=== PATIENT | female | born 1970 | race Caucasian/White ===

== ENCOUNTER → 2020-03-26 14:54 | Outpatient (CLI) | payer BC, SELFPAY ==
--- NOTE | ~2020-03-26 | MM_ITS ---
EXAMINATION: MM screening kimo BI w mir HISTORY: Screening TECHNIQUE: Craniocaudal and mediolateral oblique 3-D tomosynthesis images were obtained and synthetic 2-D images were generated. CAD analysis was submitted and interpreted. COMPARISON: Comparison to multiple prior studies sequentially, with oldest reviewed study dated 04/04. BREAST PARENCHYMAL COMPOSITION: The breasts are heterogenously dense, which may obscure small masses FINDINGS: There is no evidence of suspicious mass, calcification, or architectural distortion to sugg est malignancy in either breast. There has been no suspicious interval change. IMPRESSION: 1. No mammographic evidence of malignancy. 2. Recommend routine screening mammography in one year. BI-RADS Category 1: Negative Reviewed, dictated and finalized at location A.
== END ==
PROVIDERS: Visit Provider Obstetrics & Gynecology
DX: Z12.31 Encounter for screening mammogram for malignant neoplasm of breast (principal)
CPT/HCPCS: 77063; 77067

== ENCOUNTER → 2021-07-04 16:14 | Outpatient (CLI) | payer BC, SELFPAY ==
--- NOTE | ~2021-07-04 | MM_ITS ---
EXAMINATION: MM screening kimo BI w mir HISTORY: Screening mammogram TECHNIQUE: Craniocaudal and mediolateral oblique 3-D tomosynthesis images were obtained and synthetic 2-D images were generated. CAD analysis was submitted and interpreted. COMPARISON: 03/26/2020, 03/14/2019 bilateral screening mammogram examinations BREAST PARENCHYMAL COMPOSITION: The breasts are heterogeneously dense, which may obscure small masses . FINDINGS: There is no evidence of suspicious mass, calcification, or architectural distortion to sugg est malignancy in either breast. There has been no suspicious interval change. IMPRESSION: 1. No mammographic evidence of malignancy. 2. Recommend routine screening mammography in one year. BI-RADS Category 1: Negative Reviewed, dictated and finalized at location A. LING PULLER
== END ==
PROVIDERS: PCP Family Medicine; Visit Provider Family Medicine
DX: Z12.31 Encounter for screening mammogram for malignant neoplasm of breast (principal)
CPT/HCPCS: 77063; 77067

== ENCOUNTER → 2021-08-21 13:32 | Outpatient (CLI) | payer BC, SELFPAY ==
--- NOTE | ~2021-08-21 | XR_ITS ---
EXAMINATION: XR clavicle RT DATE: 08/21/2021 13:53 INDICATION: Pain in unspecified shoulder. TECHNIQUE: 2 views of right clavicle were obtained. COMPARISON: None. FINDINGS: Bone alignment is normal. No fracture. Coracoclavicular interval is normal. There is modera te acromioclavicular joint osteoarthritis. There is mild osteoarthritis of glenohumeral joint. A calc ified right lung nodule is consistent with old granulomatous disease. IMPRESSION: 1. Polyarticular osteoarthritis. Reviewed, dictated and finalized at location D. LE CONTROL CHENILLER
== END ==
PROVIDERS: PCP Family Medicine; Visit Provider Family Medicine
DX: M19.011 Primary osteoarthritis, right shoulder (principal)
CPT/HCPCS: 73000

== ENCOUNTER → 2022-08-27 16:19 | Outpatient (CLI) | payer BC, SELFPAY ==
--- NOTE | ~2022-08-27 | MM_ITS ---
EXAMINATION: MM screening kimo BI w mir HISTORY: Screening mammogram TECHNIQUE: Craniocaudal and mediolateral oblique 3-D tomosynthesis images were obtained and synthetic 2-D images were generated. CAD analysis was submitted and interpreted. COMPARISON: 06/24/2021, 03/26/2020, 03/14/2019 BREAST PARENCHYMAL COMPOSITION: The breasts are heterogeneously dense, which may obscure small masses . FINDINGS: RIGHT BREAST: No suspicious mass, calcification, or architectural distortion are identified to sugges t malignancy. There has been no suspicious interval change. LEFT BREAST: An focal asymmetry is present in the posterior third of the upper inner left breast. IMPRESSION: 1. Left breast focal asymmetry. 2. Additional mammographic views and possible breast ultrasound are recommended. BI-RADS Category 0: Incomplete: Needs additional imaging evaluation. Reviewed, dictated and finalized at location A. EAR OPERATOR IMPRESSION: 1. Left breast focal asymmetry. 2. Additional mammographic views and possible breast ultrasound are recommended . BI-RADS Category 0: Incomplete: Needs additional imaging evaluation.
== END ==
PROVIDERS: PCP Family Medicine; Visit Provider Family Medicine
DX: Z12.31 Encounter for screening mammogram for malignant neoplasm of breast (principal); R92.8 Other abnormal and inconclusive findings on diagnostic imaging of breast
CPT/HCPCS: 77063; 77067

== ENCOUNTER → 2022-09-15 14:24 | Outpatient (CLI) | payer BC, SELFPAY ==
--- NOTE | ~2022-09-15 | MM_ITS ---
EXAMINATION: MM diagnostic kimo LT w mir HISTORY: Focal left breast upper inner quadrant mammographic asymmetry on 08/27/2022 screening mammogra m TECHNIQUE: Additional 3-D tomosynthesis images of the left breast were performed and synthetic 2-D im ages were generated. CAD analysis was submitted and interpreted. COMPARISON: 08/27/2022screening mammogram FINDINGS: No suspicious mass or architectural distortion is detected at the area in question in the p osterior upper inner left breast IMPRESSION: 1. No mammographic evidence of malignancy 2. Routine mammographic screening is recommended BI-RADS Category 1: Negative Reviewed, dictated and finalized at location A. WORKER
== END ==
PROVIDERS: PCP Family Medicine; Visit Provider Physician Assistant
DX: R92.8 Other abnormal and inconclusive findings on diagnostic imaging of breast (principal)
CPT/HCPCS: 77061; 77065; G0279

== ENCOUNTER → 2022-11-10 09:47 | Outpatient (CLI) | payer BC, SELFPAY ==
--- NOTE | ~2022-11-10 | XR_ITS ---
Clinical Indication: Cough PA and lateral views of the chest: Comparison: 02/22/2019 Findings: Stable calcified right midlung granuloma. The lungs are otherwise clear, without evidence o f focal consolidation or pleural effusion. Cardiomediastinal silhouette is within normal limits. Bon es and soft tissues are unremarkable. Impression: No acute abnormality. Reviewed, dictated and finalized at location . Impression: No acute abnormality.
== END ==
PROVIDERS: PCP Physician Assistant; Visit Provider Physician Assistant
DX: R05.9 Cough, unspecified (principal)
CPT/HCPCS: 71046

== ENCOUNTER 2023-06-19 12:10 | Emergency (ER) | payer BC, SELFPAY ==
--- NOTE | ~2023-06-19 | XR_ITS ---
XR foot RT min 3V 06/19/2023 12:42 Indication: Right foot pain Procedure: 4 views right foot Comparison: Comparison to multiple prior studies sequentially, with oldest reviewed study dated 01/31. Findings: There is osteoarthritis of the first metatarsal phalangeal joint breast 03/28/2014. No acut e fracture or traumatic malalignment. Lisfranc joint intact. No erosive changes. No foreign bodies. Impression: 1: Progression of mild-moderate osteoarthritis of the first metatarsophalangeal joint. Reviewed, dictated and finalized at location B. Impression: 1: Progression of mild-moderate osteoarthritis of the first metatarsophalangeal joint.
--- NOTE | 2023-06-19 12:22 | ED.LOWEXIN ---
HPI - Extremity Injury (Lower) General Chief Complaint: Extremity Injury, Lower Stated Complaint: right big toe pain Time Seen by Provider: 06/19/23 12:22 Source: patient Mode of arrival: ambulatory Limitations: no limitations History of Present Illness HPI Narrative: 52-year-old female presents with complaint of pain to right 1st metatarsal joint. Reports today at work she was running up the bleachers and twisted right foot. Reports pain when bearing weight. Reports history of multiple problems with her feet . History of arthritis, bunions. He ambulatory with limp. Range of motion and distal neurovascularly intact. All systems reviewed and negative except as noted above. Related Data Allergies Allergy/AdvReac Type Severity Reaction Status Date / Time No Known Allergies Allergy Verified 06/19/23 12:23 Review of Systems Review of Systems: CONSTITUTIONAL: Denies fever, chills, or sweats. EYES: Denies visual changes, redness, or discharge. ENT: Denies rhinorrhea, congestion, sore throat, or otalgia. CARDIOVASCULAR: Denies chest pain, palpitations, or edema. RESPIRATORY: Denies cough or dyspnea. GASTROINTESTINAL: Denies abdominal pain, nausea, vomiting, or diarrhea. GENITOURINARY: Denies dysuria or hematuria. SKIN: Denies rash or itching. MUSCULOSKELETAL: Reports pain and swelling to right foot. NEUROLOGIC: Denies headache, numbness, or weakness. PSYCHIATRIC: Denies anxiety or depression. All other systems reviewed are negative, except as documented in HPI. [facility] Past Medical History Medical History Abnormal mammogram Acquired hallux valgus of left foot Enlargement of right sternoclavicular joint Hallux rigidus of left foot Hx gestational diabetes Hx of fracture of clavicle Infection, fungal, left foot Seasonal allergies Urinary frequency Surgical History Surgical History History of toe surgery Social History Social History (Updated 11/10/22 @ 09:27 by Tennille Humphries MA) Smoking status: Never smoker Alcohol intake: current Lack of Transportation: No Lack of Food: Never True Current Housing: I Have Housing Concerned About Future Housing: No Difficulty Paying Gas/Electric Bills: No Difficulty Paying for Meds: No Currently Unemployed: No Education: Master's Degree or Higher Difficulty w/ Childcare or Family Care: No Comments At time of signature, agree with nursing past medical, surgical, social and family history. There is no relevant family history pertinent to the presenting complaint. Exam Narrative: GENERAL: This is a well-nourished, well-developed patient, in no apparent distress. HEAD: normocephalic, atraumatic. EYES: PERRL. Sclera clear/white. Vision is grossly intact. EARS: External ears normal NOSE: External nose normal NECK: Neck supple, non-tender without lymphadenopathy, masses or thyromegaly. CARDIOVASCULAR: Regular rate and rhythm without murmurs, gallops, or rubs. RESPIRATORY: Clear to auscultation. Breath sounds equal bilaterally. No wheezes, rales, or rhonchi. SKIN: warm, Dry, intact with no suspicious lesions or rash, good texture and turgor. NEURO: awake, alert, and oriented to person, place and time. There were no obvious focal neurologic abnormalities. EXTREMITIES: swelling and tenderness on palpation of R first MTP joint. unable to assess warmth due to ice recently applied. Course Course Level of Care: Express Care Visit Vital Signs Vital signs: Vital Signs Temperature 37.2 C 06/19/23 12:23 Pulse Rate 98 06/19/23 12:23 Respiratory Rate 16 06/19/23 12:23 Blood Pressure 146/86 H 06/19/23 12:23 Pulse Oximetry 100 06/19/23 12:23 Oxygen Delivery Room Air 06/19/23 12:23 Temperature 37.2 C 06/19/23 12:23 Pulse Rate 98 06/19/23 12:23 Respiratory Rate 16 06/19/23 12:23 Blood Pressure
[2023-06-19 12:23] VITALS: BP 146/86; PULSE 98; RESP 16; TEMP 37.2; O2SAT 100
[2023-06-19] MEDS: KETOROLAC (*BKC) 60 MG/2 ML VIAL IM (13:18)
== END 2023-06-19 13:23 | disposition home or self-care (01) ==
PROVIDERS: Emergency Provider Nurse Practitioner Family; PCP Family Medicine
DX: S93.601A Unspecified sprain of right foot, initial encounter (principal); X50.9XXA Other and unspecified overexertion or strenuous movements or postures, initial encounter; Y99.0 Civilian activity done for income or pay; M19.071 Primary osteoarthritis, right ankle and foot
CPT/HCPCS: 73630; 96372; 99213; G0463; J1885

== ENCOUNTER 2024-03-29 10:15 | Outpatient (CLI) | payer OTHER, SELFPAY ==
--- NOTE | 2024-03-29 10:19 | EST_ITS ---
Patient Info Name: Sherry Bullock Age: 53 years : 1970 Gender: Female Ht: 64 in Wt: 136 lbs BSA: 1.68 m2 HR: 73 bpm BP: 113 / 76 mmHg Heart Rhythm: Sinus Rhythm Exam Date: 03/29/2024 10:46 AM Exam Location: Echo Lab Patient Status: Outpatient Admit Date: 03/29/2024 Staff Ordering Physician: Juan Pan APRN Attending Provider: Juan Pan APRN Exercise Technologist: Sonia Little CT Exercise Physician: lEijah Costa DO Exam Type: CA stress test treadmill Study Info Indications R06.09 - Other forms of dyspnea A treadmill exercise stress test was performed. Summary 1. 1. Negative Jay exercise stress test for ischemic ST changes by ECG criteria. 2. 2. Reduced functional capacity, achieving 7 METs of workload. 3. 3. Appropriate HR response to exercise. 4. 4. Appropriate HR recovery at 1 minute post exercise. 5. 5. No imaging with stress testing. 6. 6. Patient informed of the above results. Protocol: Jay Stress ECG Details Stage: REST Duration (min): 1 min : 8 sec Speed (mph): 0.0 Grade (%): 0 HR (bpm): 68 SBP (mmHg): 113 DBP (mmHg): 76 METS: --- Stage: REST Duration (min): 11 min : 21 sec Speed (mph): 0.0 Grade (%): 0 HR (bpm): 80 SBP (mmHg): 113 DBP (mmHg): 76 METS: --- Stage: STAGE 1 Duration (min): 1 min : 0 sec Speed (mph): 1.7 Grade (%): 10 HR (bpm): 116 SBP (mmHg): 113 DBP (mmHg): 76 METS: --- Stage: STAGE 1 Duration (min): 2 min : 0 sec Speed (mph): 1.7 Grade (%): 10 HR (bpm): 132 SBP (mmHg): 113 DBP (mmHg): 76 METS: --- Stage: STAGE 1 Duration (min): 3 min : 0 sec Speed (mph): 1.7 Grade (%): 10 HR (bpm): 132 SBP (mmHg): 143 DBP (mmHg): 77 METS: --- Stage: STAGE 2 Duration (min): 1 min : 0 sec Speed (mph): 2.5 Grade (%): 12 HR (bpm): 142 SBP (mmHg): 143 DBP (mmHg): 77 METS: --- Stage: STAGE 2 Duration (min): 2 min : 0 sec Speed (mph): 2.5 Grade (%): 12 HR (bpm): 144 SBP (mmHg): 148 DBP (mmHg): 76 METS: --- Stage: STAGE 2 Duration (min): 3 min : 0 sec Speed (mph): 2.5 Grade (%): 12 HR (bpm): 148 SBP (mmHg): 148 DBP (mmHg): 76 METS: --- Stage: RECOVERY Duration (min): 0 min : 59 sec Speed (mph): 0.0 Grade (%): 0 HR (bpm): 122 SBP (mmHg): 149 DBP (mmHg): 75 METS: --- Stage: RECOVERY Duration (min): 1 min : 45 sec Speed (mph): 0.0 Grade (%): 0 HR (bpm): 98 SBP (mmHg): 149 DBP (mmHg): 75 METS: --- Rest HR: 80 bpm Peak HR: 151 bpm Rest Sys BP: 113 mmHg Peak Sys BP: 149 mmHg Max Pred HR: 165 bpm % Max Pred HR: 92 % Target HR: 140 bpm Max RPP: 22,499 bpm*mmHg Concepcion Score: -1 Termination Reason: Reached target heart rate or workload Cardiac Symptoms: Shortness of breath Max ST Seg Deviation: -1.40 mm Total Time: 6 min : 0 sec Rest Billy BP: 76 mmHg Peak Billy BP: 75 mmHg Angina Score: None Total METS: 7.1 Resting ECG Sinus rhythm. Stress ECG No ST changes. Arrhythmias None. Report Signatures
== END 2024-03-29 10:16 | disposition home or self-care (01) ==
LOC: ANHCARD 10:16
PROVIDERS: PCP Family Medicine; Visit Provider Student in an Organized Health Care Education/Training Program
DX: R06.09 Other forms of dyspnea (principal); R61 Generalized hyperhidrosis; M79.601 Pain in right arm
CPT/HCPCS: 93017

== ENCOUNTER 2024-05-02 14:46 | Outpatient (CLI) | payer BC, SELFPAY ==
--- NOTE | ~2024-05-02 | MM_ITS ---
EXAMINATION: MM screening kimo BI w mir HISTORY: Screening mammogram TECHNIQUE: Craniocaudal and mediolateral oblique 3-D tomosynthesis images were obtained and synthetic 2-D images were generated. CAD analysis was submitted and interpreted. COMPARISON: 08/27/2022, 07/04/2021, 03/26/2020 BREAST PARENCHYMAL COMPOSITION:Dense: The breasts are heterogeneously dense, which may obscure small masses. FINDINGS: No suspicious mass, calcification, or architectural distortion are identified in either chiki ast to suggest malignancy. There has been no suspicious interval change. IMPRESSION: No mammographic evidence of malignancy. Recommend routine screening mammography in one year. BI-RADS Category 1: Negative Reviewed, dictated and finalized at location .
== END 2024-05-02 14:47 | disposition home or self-care (01) ==
PROVIDERS: PCP Family Medicine; Visit Provider Student in an Organized Health Care Education/Training Program
DX: Z12.31 Encounter for screening mammogram for malignant neoplasm of breast (principal)
CPT/HCPCS: 77063; 77067

== ENCOUNTER 2025-04-28 15:33 | Outpatient (CLI) | payer BC, SELFPAY ==
--- NOTE | ~2025-04-28 | XR_ITS ---
EXAMINATION: XR chest 2V 04/28/2025 15:53 INDICATION: Chronic cough for 6 months PROCEDURE: 2 view chest COMPARISON: 11/10/2022 FINDINGS: The lungs are clear. Calcified granuloma right mid thorax. The cardiomediastinal silhouette is within normal limits. There are no pleural effusions. There is no pneumothorax suspected. IMPRESSION: 1: NO ACUTE CARDIOPULMONARY DISEASE. Reviewed, dictated and finalized at location O.
== END 2025-04-28 15:34 | disposition home or self-care (01) ==
LOC: GOSHIMG 15:35
PROVIDERS: PCP Family Medicine; Visit Provider Student in an Organized Health Care Education/Training Program
DX: R05.3 Chronic cough (principal)
CPT/HCPCS: 71046

== ENCOUNTER 2025-06-21 08:16 | Outpatient (CLI) | payer BC, SELFPAY ==
--- NOTE | ~2025-06-21 | CT_ITS ---
EXAMINATION: CT sinus wo con COMPARISON: None HISTORY: J32.9 - Chronic sinusitis, unspecified TECHNIQUE: Axial images were obtained without IV contrast. Sagittal, coronal reconstruction images were obtained from the axial views. CT scan performed using dose optimization techniques including the following automated exposure control; adjustment of mA and/or kV; use of iterative reconstruction technique. Automatic exposure control was used to reduce radiation dose. Permanent radiation dose record is archived to PACS. FINDINGS: Frontal sinus is unremarkable. Minimal mucosal thickening in the ethmoidal sinuses. Maxillary sinuses are unremarkable. The ostiomeatal complexes are patent. Nasal septum deviated slightly to the left. No significant thickening of the turbinates with narrowing of the nasal cavities. Sphenoid sinuses are unremarkable. No osseous destruction or wall thickening is identified. IMPRESSION: Minimal sinusitis Reviewed, dictated and finalized at location P. IMPRESSION: Minimal sinusitis
== END 2025-06-21 08:17 | disposition home or self-care (01) ==
PROVIDERS: PCP Family Medicine; Visit Provider Otolaryngology
DX: J32.9 Chronic sinusitis, unspecified (principal)
CPT/HCPCS: 70486

== ENCOUNTER 2025-07-10 00:07 | Day surgery (SDC) | payer BC, SELFPAY ==
[2025-06-28 08:51] VITALS: BMI 22.3
[2025-07-10 08:52] VITALS: BP 102/73; PULSE 89; RESP 16; TEMP 36.3; O2SAT 100
[2025-07-10] MEDS: LACTATED RINGERS 1,000 ML 150 ML IV CONT (09:08)
--- NOTE | 2025-07-10 09:35 | PM.IMHP ---
H&P: HPI History of Present Illness Date/Time: 07/10/25 09:35 Chief Complaint: family history of colon cancer Narrative: this is a 54-year-old woman who presents for colonoscopy. Her last colonoscopy was 6 years ago. She has a family history of colon cancer in her father. She denies any hematochezia or melena. Review of Systems Review of Systems: All systems reviewed & are unremarkable except as noted in HPI and below Constitutional: Constitutional: Denies chills, Denies fever(s), Denies headache(s) and Denies weight loss Eyes: Eyes: Denies change in vision ENT: Denies dizziness, Denies headache(s), Denies neck mass and Denies throat swelling Cardiovascular: Cardiovascular: Denies chest pain, Denies lightheadedness and Denies dyspnea Respiratory: Respiratory: Denies cough, Denies dyspnea and Denies wheezing Gastrointestinal: Gastrointestinal: Denies abdominal pain, Denies change in bowel habits, Denies nausea and Denies vomiting Genitourinary: Genitourinary: Denies hematuria and Denies dysuria Musculoskeletal: Musculoskeletal: Reports as per HPI Integumentary/Breasts: Skin/Breast: Reports as per HPI Neurologic: Denies dizziness and Denies headache(s) Allergic/Immunologic: Allergic/Immunologic: Denies throat swelling and Denies wheezing [facility] Past Medical History Medical History (Updated 07/10/25 @ 09:36 by Guillermo Miles DO) Chronic sinusitis Hallux rigidus of right foot Abnormal mammogram Hx of fracture of clavicle Enlargement of right sternoclavicular joint Urinary frequency Hx gestational diabetes Seasonal allergies Infection, fungal, left foot Hallux rigidus of left foot Acquired hallux valgus of left foot Surgical History Surgical History History of toe surgery Social History Social History Social History: Caffeine-coffee Smoking status: Never smoker Alcohol intake: current Alcohol use details: occasionally Substance use: never Substance use type: does not use Do You Feel Safe in your Home?: Yes Lack of Transportation: No Lack of Food: Never True Current Housing: I Have Housing Concerned About Future Housing: No Difficulty Paying Gas/Electric Bills: No Difficulty Paying for Meds: No Currently Unemployed: No Education: Master's Degree or Higher Difficulty w/ Childcare or Family Care: No Meds Home Medications and Allergies Home Medications ?Medication ?Instructions ?Recorded ?Confirmed ?Type spironolactone 100 mg tablet 100 mg PO DAILY 02/12/24 06/28/25 History metformin 500 mg tablet,extended 1,000 mg (2 x 500 mg) PO BID #360 07/22/24 07/10/25 Rx release 24 hr tabs isotretinoin 20 mg capsule 20 mg PO DAILY 03/01/25 07/10/25 History (Accutane) ipratropium bromide 21 mcg (0.03 2 spray intranasal BID #30 mL 05/18/25 07/10/25 Rx %) nasal spray gabapentin 100 mg capsule 100 mg PO .COMPLEX #90 caps 05/19/25 07/10/25 Rx Allergies Allergy/AdvReac Type Severity Reaction Status Date / Time No Known Allergies Allergy Verified 07/10/25 08:41 Vital Signs Vital Signs - 24 hr 07/10/25 08:52 Temperature 97.4 F L Pulse Rate 89 Respiratory Rate 16 Blood Pressure 102/73 Pulse Oximetry 100 Oxygen Delivery Room Air Exam Const: General: no acute distress and alert Orientation/consciousness: patient oriented x3 HENMT: Head: normocephalic and atraumatic Ears: hearing grossly normal bilaterally Face/Nose/Sinus: Normal nares present Mouth: Yes Normal oral and palatal mucosa present Eyes: Periorbital: periorbital findings normal Sclera: sclerae normal EOM: EOMs intact bilaterally Neck: Neck: normal visual inspection, no lymphadenopathy and trachea midline Chest: Chest palpation & inspection: normal inspection of the chest Resp: Effort & Inspection: normal respiratory effort Auscultation: clear to auscultation bilaterally Cardio: Jugular venous distension: no JVD Rate: regular rate Rhythm: regular rhythm Heart sounds: S1 normal heart sound present and S2 normal heart sound present Peripheral pulses: Peripheral pulses 2+ throughout GI: Inspection: normal to inspection GI Palp: Yes Soft to palpation, No Tenderness to palpation present (GI), No Guarding due to palpation present (GI) and No Rebound tenderness present Percussion: Yes normal to percussion Auscultation: normal bowel sounds : General: Yes no CVA tenderness Back/Spine/Pelvis: Back: no CVA tenderness Neuro: General: patient oriented x3, no focal motor deficits and CN's II-XI intact bilaterally Cognition (Neuro): normal cognition Speech: normal speech Motor exam (neuro): 5/5 motor strength present throughout Extrem: General: capillary refill normal and no clubbing, cyanosis or edema Assessment and Plan Assessment and plan (1) Family history of colon cancer: Code(s): Z80.0 - Family history of malignant neoplasm of digestive organs Status: Acute Assessment and Plan: I have recommended colonoscopy. I have discussed the procedure, risks, benefits, and alternatives. Questions were answered. Patient is agreeable to proceed.
--- NOTE | 2025-07-10 09:38 | WPDANESEPPF ---
Anes - Initial Pre Proc Eval Procedure: Operation Date: 07/10/25 10:00 Proposed Procedures p Screening Colonoscopy - Guillermo Miles DO Date/Time: 07/10/25 09:38 Surgeon: Guillermo Miles DO Pre Op Diagnosis: Neoplasm screening Patient Data Age: 54 Gender: F Height: 1.63 m Weight: 57.1 kg Last Vital Signs Temp 36.3 C L 07/10/25 08:52 Pulse 89 07/10/25 08:52 Resp 16 07/10/25 08:52 BP 102/73 07/10/25 08:52 Pulse Ox 100 07/10/25 08:52 O2 Del Method Room Air 07/10/25 08:52 Allergies Allergy/AdvReac Type Severity Reaction Status Date / Time No Known Allergies Allergy Verified 07/10/25 08:41 Home Medications ?Medication ?Instructions ?Recorded ?Confirmed ?Type spironolactone 100 mg tablet 100 mg PO DAILY 02/12/24 06/28/25 History metformin 500 mg tablet,extended 1,000 mg (2 x 500 mg) PO BID #360 07/22/24 07/10/25 Rx release 24 hr tabs isotretinoin 20 mg capsule 20 mg PO DAILY 03/01/25 07/10/25 History (Accutane) ipratropium bromide 21 mcg (0.03 2 spray intranasal BID #30 mL 05/18/25 07/10/25 Rx %) nasal spray gabapentin 100 mg capsule 100 mg PO .COMPLEX #90 caps 05/19/25 07/10/25 Rx Laboratory Tests 07/10/25 09:04 POC Capillary Glucose 96 mg/dl (65-105) Patient hx anesthesia problems: none Family hx anesthesia problems: none Results Review: All pre-operative results and documents have been reviewed as part of the pre-operative evaluation. [facility] Past Medical History Medical History (Updated 07/10/25 @ 09:36 by Guillermo Miles DO) Chronic sinusitis Hallux rigidus of right foot Abnormal mammogram Hx of fracture of clavicle Enlargement of right sternoclavicular joint Urinary frequency Hx gestational diabetes Seasonal allergies Infection, fungal, left foot Hallux rigidus of left foot Acquired hallux valgus of left foot Surgical History Surgical History History of toe surgery Social History Social History Social History: Caffeine-coffee Smoking status: Never smoker Alcohol intake: current Alcohol use details: occasionally Substance use: never Substance use type: does not use Do You Feel Safe in your Home?: Yes Lack of Transportation: No Lack of Food: Never True Current Housing: I Have Housing Concerned About Future Housing: No Difficulty Paying Gas/Electric Bills: No Difficulty Paying for Meds: No Currently Unemployed: No Education: Master's Degree or Higher Difficulty w/ Childcare or Family Care: No Anes - Eval Final PreProcedure Day of Procedure 07/10/25 09:38 Patient weight: normal Heart: regular rate and rhythm Lungs: clear to auscultation and normal air movement Airway: Mallampati scale class II Neurological: alert and oriented Last oral intake: >/= 8 hours ASA classification: II Emergent: no Anesthetic plan: proceed Anesthesia type and monitoring: general GIVS and standard monitoring Results Review: All pre-operative results and documents have been reviewed as part of the pre-operative evaluation. Informed Consent: The patient's anesthetic plan and its attendant risks and benefits were discussed with the patient/family/POA. Questions were solicited and answers provided to the satisfaction of the patient/family/POA.
[2025-07-10 10:02] VITALS: BP 96/65; PULSE 80; RESP 16; O2SAT 98
[2025-07-10 10:12] VITALS: BP 97/66; PULSE 65; RESP 16; O2SAT 100
[2025-07-10 10:22] VITALS: BP 104/74; PULSE 68; RESP 16; O2SAT 100
== END 2025-07-10 10:42 | disposition home or self-care (01) ==
PROVIDERS: PCP Family Medicine; Visit Provider Surgery
PROC: 0DJD8ZZ Inspection of Lower Intestinal Tract, Via Natural or Artificial Opening Endoscopic (ICD-10-PCS; CPT 45378; principal; 2025-07-10 10:00)
DX: Z12.11 Encounter for screening for malignant neoplasm of colon (principal); Z80.0 Family history of malignant neoplasm of digestive organs; Z79.84 Long term (current) use of oral hypoglycemic drugs
CPT/HCPCS: 45378; 82948; J2704; J7120

== ENCOUNTER 2025-08-09 13:09 | Outpatient (CLI) | payer BC, SELFPAY ==
--- NOTE | ~2025-08-09 | MM_ITS ---
EXAMINATION: MM screening kimo BI w mir HISTORY: Screening TECHNIQUE: Craniocaudal and mediolateral oblique 3-D tomosynthesis images were obtained and synthetic 2-D images were generated. CAD analysis was submitted and interpreted. COMPARISON: Comparison to multiple prior studies sequentially, with oldest reviewed study dated , 03/26/2020 BREAST PARENCHYMAL COMPOSITION: Dense: The breasts are heterogeneously dense, which may obscure small masses. FINDINGS: There is no evidence of suspicious mass, calcification, or architectural distortion to suggest malignancy in either breast. IMPRESSION: 1. No mammographic evidence of malignancy. 2. Recommend routine screening mammography in one year. BI-RADS Category 1: Negative Reviewed, dictated and finalized at location A. D NURSE
--- OUTSIDE RECORDS SUMMARY | 2025-08-09 15:12 | XMS_ITS | Clinical Summary ---
Author Organization [facility] Address [address] [place] [address] Phone Care Team Providers Care Cage Supervisor Name Role Phone Marilee Padron MD Primary Care Provider + Allergies No known active allergies Medications clindamycin (CLEOCIN T) 1 % external solution APPLY TOPICALLY TO FACE EVERY DAY IN THE MORNING 2 Active Accutane 20 mg capsule 2 Active nystatin-triamc inolone ointment 2 Active spironolactone (ALDACTONE) 100 mg tablet Active benzonatate (TESSALON) 100 mg capsuleIndicati ons:Cough Take 1 capsule (100 mg total) by mouth 3 (three) times a day as needed for cough 30 capsule 1 5 Active Active Problems Problem Noted Date Diagnosed Date Abnormal finding on mammography 10/21/2010 Encounters Date Type Department Care Team Description 06/21/2025 4:00 PM CDT Office Visit [facility] ([facility]) - [facility] Medicine E[facility] [address]th [place] [address] [place] [id number] Barrie Olivares MD Chronic cough (Primary Dx); Globus pharyngeus; LPRD (laryngopharyngeal reflux disease); Allergic rhinitis, unspecified seasonality, unspecified trigger 06/21/2025 3:58 PM CDT - 06/21/2025 11:59 PM CDT Hospital Encounter [facility] ([facility] [address] [place] [address] Discharge Disposition: Discharge to home or self care from Last 3 Months Surgical History Surgery Date Site/Laterality Comments TOE SURGERY 08/24/2010 - 08/23/2011 Family History Medical History Relation Name Comments Cancer Father Letty Cornejo Hearing loss Father Letty Cornejo Hearing loss Mother Kirsten Cornejo Osteoarthritis Mother Kirsten Cornejo Relation Name Status Comments Father Letty Cornejo Mother Kirsten Cornejo Alive Social History Tobacco Use Types Packs/Day Years Used Date Smoking Tobacco: Never Assessed Comments Unknown Sex and Gender Information Value Date Recorded Sex Assigned at Not on file Legal Sex Female 3:30 AM [employer] Gender Identity Not on file Sexual Orientation Not on file 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 Not on file Not on file Last Filed Vital Signs Vital Sign Reading Time Taken Comments Blood Pressure 126/73 06/21/2025 3:54 PM CDT Pulse 91 06/21/2025 3:54 PM CDT Temperature - - Respiratory Rate - - Oxygen Saturation - - Inhaled Oxygen Concentration - - Weight 59 kg (130 lb) 06/21/2025 3:54 PM CDT Height 162.6 cm (5' 4) 06/21/2025 3:54 PM CDT Body Mass Index 22.31 06/21/2025 3:54 PM CDT Plan of Treatment Health Maintenance Due Date Last Done Comments Cervical Cancer Screening 1968 Colon Cancer Screening-Colonoscopy 1968 Depression Screening 1968 Hepatitis C Screening 1968 Hepatitis B Screening 1986 Regular Well Visit/Exam 18-64 1986 Breast Cancer Screening-Mammogram 11/19/2018 11/19/2017, 10/08/2017, 09/21/2017, Additional history exists Covid-19 Vaccine ( season) 2025 08/25/2021, 11/12/2020, 10/13/2020 Influenza Vaccine (#1) 2025 , 06/23/2020, 05/24/2013 DTaP/Tdap/Td Vaccine (2 - Td or Tdap) 02/20/2027 02/20/2017 Zoster Vaccine Completed 03/08/2022, 08/23/2021 Pneumococcal vaccine <65 Aged Out No longer eligible based on patient's age to complete this topic Procedures Procedure Name Priority Date/Time Associated Diagnosis Comments NEURO CT OUTSIDE REFERENCE Routine 06/21/2025 3:58 PM CDT SCREENING MAMMOGRAM Routine 11/19/2017 3 :59 PM CDT from Last 3 Months or Most Recently Relevant to Health Maintenance Results * Neuro CT Outside Reference (06/21/2025 3:58 PM CDT) Impressions [facility] - 06/21/2025 3:58 PM CDT These images are for Reference purposes only and have not been reviewed by [facility] Radiology. There will be no report generated by a [facility] Radiologist. Narrative [facility] - 06/21/2025 3:58 PM CDT EXAMINATION: Images For Reference Purposes Only us Barrie Olivares MD IMG CT PROCEDURES Final Result RAD_PACS[facility] * Screening Mammogram (11/19/2017 3:59 PM CDT) Anatomical Region Laterality Modality Breast N/A Mammography 11/19/2017 3:59 PM CDT Narrative 11/19/2017 7:45 PM CDT HENNY JONES M.D. FINAL REPORT ACC# Date Time Exam [id number] Nov 19, 2017 10:59:00 [facility] [id number] Procedure Mammo, unilat L Technologist(s): na Morfin; ; [id number] Nov 19, 2017 10:58:00 [facility] [id number] Breast Bx Incl Loc Stereo L EXAMINATION: ORIGINAL REPORT LEFT BREAST VACUUM-ASSISTED CORE BIOPSY UTILIZING STEREOTACTIC GUIDANCE, PLACEMENT OF A BIOPSY SITE TISSUE MARKER CLIP, AND LEFT FULL FIELD DIGITAL POST-PROCEDURE MAMMOGRAM HISTORY: 47-year-old woman with a single view asymmetry in the far posterior, far medial left breast. Image guided core needle biopsy is requested to evaluate for malignancy. COMPARISON: Prior mammogram 10/08/2017 PROCEDURE AND FINDINGS: The risks and potential benefits of the procedures were discussed with the patient and written informed consent was obtained. The patient was placed in the prone position on the biopsy unit with the LEFT breast in lateromedial compression and the area of interest was localized and targeted utilizing digital imaging with stereotaxis. After sterile preparation of the skin, 1% lidocaine was utilized for local anesthesia at the skin puncture site and 2% lidocaine with epinephrine was utilized for deeper local anesthesia/hemostasis about the biopsy site. A small skin incision was made with a #11 scalpel blade. A 9 gauge [employer] vacuum-assisted biopsy needle was then advanced through the skin incision to the level of the calcifications of interest in the posterior medial left breast from a lateral approach utilizing stereotactic guidance and a total of 6 tissue cores were obtained. The specimen radiograph demonstrates that the calcifications of interest are included within the tissue cores. A Bright [employer] Mini Cork tissue marker clip was then placed at the biopsy site. The needle was removed and hemostasis was achieved. A sterile bandage and an ice pack were applied. The tissue cores were submitted to surgical pathology in formalin for histologic analysis. The patient tolerated the procedure well and without evidence of significant immediate complication. The patient was given verbal as well as written post procedural instructions prior to release from the department. A two-view LEFT digital mammogram obtained post procedure demonstrates that the tissue marker clip is in the expected position. The attending radiologist, Dr. Jones, was present throughout the entire procedure. Dr. Matthews (diagnostic resident care spec) also participated in this examination. IMPRESSION: Successful vacuum-assisted core needle biopsy of the LEFT breast. Pathology is pending. by BALDEMAR Emery, RN for Dr. Henny Jones: Histopathology from the core needle biopsy of the area of interest in the LEFT breast demonstrates benign breast tissue. This is benign and concordant with image findings. Annual screening mammography is recommended. The patient was informed of the biopsy results and recommendations by Theo Minor RN, BSN of the [facility] on 11/23/2017. Edited by: Theo Minor Electronically signed by: Henny Jones M.D. Requested By: Ameena Boateng M.D. Dictated By: MADIHA MATTHEWS M.D. on Nov 19 2017 1:12P This document has been electronically signed by: HENNY JONES M.D. on Nov 19 2017 2:43P on Nov 24 2017 11:23A This Addendum has been electronically signed by: HENNY JONES M.D. on Nov 24 2017 11:14A [id number] JONES M.D. FINAL REPORT Attending: AMEENA BOATENG Requesting: Ameena Boateng Requesting Fax: Attending Fax: Attending ID: [id number] Requesting ID: [id number] Report To 1 ID: [id number] Report To 1 Name: , Report To 1 FAX: NextGen Order #: Procedure Note Miscellaneous, Not In File - 11/24/2017 HENNY JONES M.D. FINAL REPORT ACC# Date Time Exam [id number] Nov 19, 2017 10:59:00 [facility] [id number] Procedure Mammo, unilat L Technologist(s): na Morfin; ; [id number] Nov 19, 2017 10:58:00 [facility] [id number] Breast Bx Incl Loc Stereo L EXAMINATION: ORIGINAL REPORT LEFT BREAST VACUUM-ASSISTED CORE BIOPSY UTILIZING STEREOTACTIC GUIDANCE, PLACEMENT OF A BIOPSY SITE TISSUE MARKER CLIP, AND LEFT FULL FIELD DIGITAL POST-PROCEDURE MAMMOGRAM HISTORY: 47-year-old woman with a single view asymmetry in the far posterior, far medial left breast. Image guided core needle biopsy is requested to evaluate for malignancy. COMPARISON: Prior mammogram 10/08/2017 PROCEDURE AND FINDINGS: The risks and potential benefits of the procedures were discussed with the patient and written informed consent was obtained. The patient was placed in the prone position on the biopsy unit with the LEFT breast in lateromedial compression and the area of interest was localized and targeted utilizing digital imaging with stereotaxis. After sterile preparation of the skin, 1% lidocaine was utilized for local anesthesia at the skin puncture site and 2% lidocaine with epinephrine was utilized for deeper local anesthesia/hemostasis about the biopsy site. A small skin incision was made with a #11 scalpel blade. A 9 gauge [employer] vacuum-assisted biopsy needle was then advanced through the skin incision to the level of the calcifications of interest in the posterior medial left breast from a lateral approach utilizing stereotactic guidance and a total of 6 tissue cores were obtained. The specimen radiograph demonstrates that the calcifications of interest are included within the tissue cores. A [employer] Mini Cork tissue marker clip was then placed at the biopsy site. The needle was removed and hemostasis was achieved. A sterile bandage and an ice pack were applied. The tissue cores were submitted to surgical pathology in formalin for histologic analysis. The patient tolerated the procedure well and without evidence of significant immediate complication. The patient was given verbal as well as written post procedural instructions prior to release from the department. A two-view LEFT digital mammogram obtained post procedure demonstrates that the tissue marker clip is in the expected position. The attending radiologist, Dr. Jones, was present throughout the entire procedure. Dr. Matthews (diagnostic resident care spec) also participated in this examination. IMPRESSION: Successful vacuum-assisted core needle biopsy of the LEFT breast. Pathology is pending. by BALDEMAR Emery, RN for Dr. Henny Jones: Histopathology from the core needle biopsy of the area of interest in the LEFT breast demonstrates benign breast tissue. This is benign and concordant with image findings. Annual screening mammography is recommended. The patient was informed of the biopsy results and recommendations by Theo Minor RN, BSN of the [facility] on 11/23/2017. Edited by: Theo Minor Electronically signed by: Henny Jones M.D. Requested By: Ameena Boateng M.D. Dictated By: MADIHA MATTHEWS M.D. on Nov 19 2017 1:12P This document has been electronically signed by: HENNY JONES M.D. on Nov 19 2017 2:43P on Nov 24 2017 11:23A This Addendum has been electronically signed by: HENNY JONES M.D. on Nov 24 2017 11:14A [id number] JONES M.D. FINAL REPORT Attending: AMEENA BOATENG Requesting: Ameena Boateng Requesting Fax: Attending Fax: Attending ID: [id number] Requesting ID: [id number] Report To 1 ID: [id number] Report To 1 Name: , Report To 1 FAX: NextGen Order #: Ameena Boateng MD IMG MAMMO PROCEDURES Edited Result - Final from Last 3 Months or Most Recently Relevant to Health Maintenance Insurance BLUE ACCESS OOS [employer] ACCESS OOS BLUE ACCESS OOS Care Teams Cage Supervisor Relationship Specialty Start Date End Date Marilee Padron MD PCP - General 12/12/17
--- OUTSIDE RECORDS SUMMARY | 2025-08-09 15:12 | XMS_ITS | Clinical Summary ---
Author Organization [facility] Address [address] [place] [address] Care Team Providers Care Sludge Control Attendant Name Role Phone Marilee Padron MD Primary Care Provider [phone] Source Comments [facility],non-owned Affiliates and Associated Physician Practices is amultiple site organization consisting of ambulatory clinics and hospital sitesin [place], [place], [place] and [place]. This disclosure is being madepursuant to the Care Everywhere program and may not contain all information available regarding this patient. Last updated 18.[facility] Allergies No known active allergies Immunizations Immunization Administration Dates Next Due TDAP (7yrs+) 02/20/2017 Social History Tobacco Use Types Packs/Day Years Used Date Smoking Tobacco: Never Assessed Comments Unknown Sex and Gender Information Value Date Recorded Sex Assigned at Not on file Legal Sex Female 1:54 PM CDT Gender Identity Not on file Sexual Orientation Not on file Plan of Treatment Health Maintenance Due Date Last Done Comments COLOGUARD (AGES 45-75) - COL ON CA SCREENING 1968 COLON MONITORING 1968 COLONOSCOPY - COLON CA SCREENING 1968 CT COLONOGRAPHY - COLON CA SCREENING 1968 Colorectal Cancer Screening 1968 FIT - COLON CA SCREENING 1968 FLEX SIG - COLON CA SCREENING 1968 LIPID TESTING 1968 MAMMOGRAM 1968 HIV SCREENING 1983 HEPATITIS C SCREENING 09/05/1986 HEPATITIS B VACCINE (1 of 3 - 19+ 3-dose series) 1987 PNEUMOCOCCAL VACCINE 50+ (1 of 1 - PCV) 2018 ZOSTER VACCINE (1 of 2) 2018 DEPRESSION SCREENING 08/24/2024 COVID-19 VACCINE (1 - 2024-2 6 season) 2025 INFLUENZA VACCINE (#1) 2025 DTAP/TDAP/TD VACCINES (2 - T d or Tdap) 02/20/2027 02/20/2017 HIB VACCINE Aged Out No longer eligi ble based on patient's age to complete this topic HPV VACCINE Aged Out No longer eligi ble based on patient's age to complete this topic MENINGOCOCCAL (Group B) VACC INE SHARED DECISION-MAKING Aged Out No longer eligibl e based on patient's age to complete this topic MENINGOCOCCAL GROUPS A/C/Y/W VACCINE Aged Out No longer eligible b ased on patient's age to complete this topic Insurance Care Teams Sludge Control Attendant Relationship Specialty Start Date End Date Marilee Padron MD [address] [place] [id number] PCP - General Family Medicine 02/20/17
--- OUTSIDE RECORDS SUMMARY | 2025-08-09 15:12 | XMS_ITS | Clinical Summary ---
Author Organization [facility] Address [address] [place] [address] Care Team Providers Care Securities Settlement Processor Name Role Phone Non-Staff, Provider Primary Care Provider Vicky becerra Social History Tobacco Use Types Packs/Day Years Used Date Smoking Tobacco: Never Assessed Comments Unknown Sex and Gender Information Value Date Recorded Sex Assigned at Not on file Legal Sex Female 4:16 PM CDT Gender Identity Not on file Sexual Orientation Not on file Plan of Treatment Health Maintenance Due Date Last Done Comments Cervical Cancer Screening Pa p Smear (Age 30 to 64) Every 3 Years 1968 Colorectal Cancer Screening Colonoscopy (10 Years) 1968 Annual Physical 1971 Hepatitis C 1986 Hepatitis B Vaccines (1 of 3 - 19+ 3-dose series) 1987 Cervical Cancer Screening Pa p with HPV Testing (Age 30 to 64) Every 5 Years 1998 Cervical Cancer Screening wi th HPV 1998 Mammogram Screening 2008 Pneumococcal Vaccine: 50+ Years (1 of 1 - PCV) 2018 Zoster Vaccines (2 of 2) 10/18/2021 08/23/2021 COVID-19 Vaccine (4 - 2024-2 6 season) 2025 08/25/2021, 11/12/2020, 10/13/2020 Influenza Adult (#1) 2025 07/30/2021, 06/23/2020 DTaP, Tdap and Td Vaccines ( 2 - Td or Tdap) 02/20/2027 02/20/2017 Hepatitis A Vaccines Aged Out No long er eligible based on patient's age to complete this topic Meningococcal B Vaccine Aged Out No l onger eligible based on patient's age to complete this topic Meningococcal Vaccine Aged Out No maricel liane eligible based on patient's age to complete this topic RSV Immunizations Under 20 Months Aged Out No longer eligible b ased on patient's age to complete this topic Insurance Care Teams Securities Settlement Processor Relationship Specialty Start Date End Date Non-Staff, Provider PCP - General 08/28/21
== END 2025-08-09 13:10 | disposition home or self-care (01) ==
LOC: CHSIMG 13:11
PROVIDERS: PCP Family Medicine; Visit Provider Family Medicine
DX: Z12.31 Encounter for screening mammogram for malignant neoplasm of breast (principal)
CPT/HCPCS: 77063; 77067